=== PATIENT | female | born 2000 | race African-American/Black ===

== ENCOUNTER 2020-06-29 01:49 | Inpatient (IN) | payer OTHER ==
[~2020-06-29] VITALS: Ht 152.4 cm; Wt 55.7 kg
[2020-06-29] VITALS (8 sets, daily range): BP systolic 143–194; BP diastolic 60–120
[2020-06-29 02:55] LABS: ABSOLUTE NEUTROPHILS 1.9 thou/uL (1.4-8.2); EOSINOPHILS 1.4 % (0.0-3.0); HEMATOCRIT 32.9 % (37.0-47.0); HEMOGLOBIN 10.7 gm/dL (12.0-15.0); LYMPHOCYTES 40.9 % (24.0-44.0); MCH 29.2 pg (26.0-34.0); MCHC 32.5 g/dL (28.0-37.0); MCV 89.7 fL (80.0-100.0); MONOCYTES 7.4 % (1.0-8.0); PLATELET COUNT 422 thou/uL (150-400); POLYS 49.3 % (36.0-66.0); RBC 3.67 mil/uL (4.20-5.00); RDW 19.1 % (10.5-14.5)
[2020-06-29 03:00] LABS: CALCIUM 8.2 mg/dL (8.5-10.1); POTASSIUM 3.8 mmol/L (3.5-5.1)
[2020-06-29 03:10] LABS: ALBUMIN 3.1 g/dL (3.4-5.0); TOTAL BILIRUBIN 0.3 mg/dL (0.2-1.0); TOTAL PROTEIN 6.5 g/dL (6.4-8.2)
[2020-06-29] MEDS ORDERED: NORVASC 2.5 MG2.5 M1 PO (03:12)
[2020-06-29] MEDS ORDERED: CARVEDILOL12.5 MG PO (03:13)
[2020-06-29 03:14] LABS: TROPONIN-I 0.63 ng/mL (<0.06)
--- NOTE | 2020-06-29 04:10 | NUR ---
ATTEMPTED TO CALL REPORT TO MARGARETTE ON CCU, REPORTS SHE IS IN ICU TO GRAB SUPPLIES AND WILL CALL BACK
--- NOTE | 2020-06-29 06:09 | NUR ---
ADMITTED FROM ER UNDER 'S CARE. VSS. NO S/S ACUTE DISTRESS NOTED OR REPORTED AT THIS TIME. C/O HEART BURN. CALLED BED SPRING MAKER AND GAVE AM PEPCID EARLY. NO S/S ACUTE DISTRESS NOTED OR REPORTED AT THIS TIME. WILL CONT TO MONITOR FOR ANY CHANGES IN CONDITION.
--- NOTE | 2020-06-29 09:07 | EKG ---
[facility] [place] [address] ELECTROCARDIOGRAM REPORT Name: VALENTINA SHEFFIELD Room #: 209-P ADM IN M.R.#: [id number] Admission: 06/29/20 Attend Phys: Igor Galvez MD Discharge: Date of : 99 Report #: [id number] THIS REPORT FOR: cc: FAM - Family physician unknown FAM - Family physician unknown Jeremias Calvert MD [facility] ~ THIS REPORT FOR: //name// [facility] ED Test Date: 2020-06-29 Test Time: 02:01:37 Pat Name: VALENTINA SHEFFIELD Department: Room: 209 Gender: F Fire Alarm Installer: STOLED : 2000 Requested By: Lynsey Holder Order Number: [id number] MD: Jeremias Calvert Measurements Intervals [place] Rate: 79 P: 47 [place]: 164 QRS: 48 QRSD: 93 T: 151 QT: 412 QTc: 473 Interpretive Statements Sinus rhythm Probable left atrial enlargement Non specific ST-T changes No previous ECG available for comparison Electronically Signed On 06-29-2020 9:07:07 SUPERVISOR PAINT by Jeremias Calvert [email or web address] <ELECTRONICALLY SIGNED> By: Jeremias Calvert MD, FACC 06/29/20906 0 0 Jeremias Calvert MD, [facility] /EPI
--- NOTE | 2020-06-30 04:22 | NUR ---
PT AMBULATING TO BATHROOM INDEPENDENTLY AND IS TOLERATING WELL. DENIES PAIN. PERITONEAL DIALYSIS. RESTING COMFORTABLY. NO NEEDS VOICED. CALL LIGHT WITHIN REACH. FREQUENT OBSERVATION.
[2020-06-30 04:47] VITALS: BP 135/81
--- NOTE | 2020-06-30 09:10 | 2DMMODE ---
[facility] [place] [address] 2 D/M-MODE ECHOCARDIOGRAM Name: VALENTINA SHEFFIELD Room #: 209-P ADM IN M.R.#: [id number] Admission: 06/29/20 Attend Phys: Jeanine Mueller MD Discharge: Date of : 99 Report #: [id number] THIS REPORT FOR: cc: FAM - Family physician unknown FAM - Family physician unknown Jeremias Calvert MD [facility] ~ APPROVED REPORT Study performed: 06/30/2020 08:01:10 EXAM: Comprehensive 2D, Doppler, and color-flow Echocardiogram Patient Location: Bedside Room #: 209 Status: routine BSA: 1.54 HR: 96 bpm BP: 135/81 mmHg Rhythm: NSR Other Information Study Quality: Good Indications Chest pain, abnormal troponin. Hx: HTN, ESRD. 2D Dimensions RVDd: 39.62 mm IVSd: 13.97 (7-11mm) LVOT Diam: 20.44 (18-24mm) LVDd: 42.47 mm PWd: 14.89 (7-11mm) Ascending Ao: 25.87 (22-36mm) LVDs: 28.56 (25-40mm) Aortic Root: 26.91 mm Volumes Left Atrial Volume (Systole) Single Plane 4CH: 59.77 mL Single Plane 2CH: 60.91 mL LA ESV Index: 40.00 mL/m2 Aortic Valve AoV Peak Juan Pablo.: 1.58 m/s AO Peak Gr.: 9.93 mmHg LVOT Max P.78 mmHg LVOT Max V: 1.20 m/s RAMAN Vmax: 2.50 cm2 [facility] [address] [address] 2 D/M-MODE ECHOCARDIOGRAM Name: VALENTINA SHEFFIELD Room #: 209-P [facility]#: [id number] Admission: 06/29/20 Attend Phys: Jeanine Mueller, Discharge: Date of : 99 Report #: [id number] Mitral Valve E/A Ratio: 1.4 MV Decel. Time: 105.82 ms MV E Max Juan Pablo.: 1.11 m/s MV A Juan Pablo.: 0.78 m/s MV PHT: 30.69 ms IVRT: 86.51 ms Pulmonary Valve PV Peak Juan Pablo.: 1.06 m/s PV Peak Gr.: 4.47 mmHg Pulmonary Vein P Vein S: 0.53 m/s P Vein A: 0.36 m/s P Vein D: 0.41 m/s P Vein A Dur.: 121.1 msec P Vein S/D Ratio: 1.29 Tricuspid Valve TR Peak Juan Pablo.: 2.17 m/s RAP Estimate: 5.00 mmHg TR Peak Gr.: 18.82 mmHg PA Pressure: 24.00 mmHg Left Ventricle The left ventricle is normal size. Moderate concentric left ventricular hypertrophy. The left ventricular systolic function is normal. LVEF is 55%. The left ventricular diastolic function is normal. Right Ventricle The right ventricle is normal size. The right ventricular systolic function is normal. Atria Left atrium is mildly dilated. The right atrium size is normal. Aortic Valve The aortic valve is normal in structure. No aortic regurgitation is present. There is no aortic valvular stenosis. Mitral Valve The mitral valve is normal in structure. Trace mitral regurgitation. No evidence of mitral valve stenosis. Tricuspid Valve The tricuspid valve is normal in structure. Trace to mild tricuspid [facility] [address] [place] [address] 2 D/M-MODE ECHOCARDIOGRAM Name: VALENTINA SHEFFIELD Room #: 209-P [facility] IN .R.#: [id number] Admission: 06/29/20 Attend Phys: Jeanine Mueller, Discharge: Date of : 99 Report #: [id number] regurgitation. Estimated PAP 25mmHg. Pulmonic Valve The pulmonary valve is normal in structure. Mild pulmonic regurgitation. Great Vessels The aortic root is normal in size. The ascending aorta is normal in size. IVC is normal in size and collapses >50% with inspiration. Pericardium Small circumferential pericardial effusion. <Conclusion> Normal left ventricle size Moderate concentric hypertrophy Normal systolic function ejection fraction of 55%, negative for segmental wall motion abnormality Normal right ventricle size and function Mild left atrial enlargement Trace of tricuspid valve insufficiency with a PA pressure systolic estimated 25 mmHg Small pericardial effusion, no tamponade physiology. <ELECTRONICALLY SIGNED> By: Jeremias Calvert MD, FACC 06/30/20909 9 9 Jeremias Calvert MD, FACC /INF
[2020-06-30 09:16] LABS: HEMATOCRIT 30.8 % (37.0-47.0); MCH 29.1 pg (26.0-34.0); MCHC 32.4 g/dL (28.0-37.0); MCV 89.9 fL (80.0-100.0); RBC 3.42 mil/uL (4.20-5.00); RDW 19.7 % (10.5-14.5); WBC 5.1 thou/uL (4.0-11.0)
[2020-06-30 09:34] LABS: CALCIUM 8.4 mg/dL (8.5-10.1); POTASSIUM 4.1 mmol/L (3.5-5.1)
[2020-06-30 09:43] LABS: TROPONIN-I 0.41 ng/mL (<0.06)
[2020-06-30 12:00] VITALS: BP 109/87
[2020-06-30] MEDS ORDERED: PROTONIX40 M4 PO (16:08)
[2020-06-30] MEDS ORDERED: ZOFRAN 4 MG ORAL4 MG PO (16:08)
[2020-06-30 16:35] VITALS: BP 109/87
--- NOTE | 2020-06-30 16:58 | NUR ---
DISCHARGE INSTRUCTIONS REVIEWED WITH PT. ALL QUESTIONS ANSWERED. PIV AND TELE DC'D. RX, INSTRUCTIONS AND BELONGINGS SENT WITH PT.
== END 2020-06-30 16:58 | disposition home or self-care (01) | DRG 280 ==
LOC: ER 01:49 → 2N 04:04 → EROBS 04:04 → 2N 05:32
PROVIDERS: Nurse Practitioner Family; Student in an Organized Health Care Education/Training Program; ADMIT Internal Medicine; ATTEND Internal Medicine
PROC: 3E1M39Z Irrigation of Peritoneal Cavity using Dialysate, Percutaneous Approach (ICD-10-PCS; principal; 2020-06-29)
PROC: 3E1M39Z Irrigation of Peritoneal Cavity using Dialysate, Percutaneous Approach (ICD-10-PCS; 2020-06-30)
DX: I16.1 Hypertensive emergency (principal); I21.A1 Myocardial infarction type 2; N18.6 End stage renal disease; I12.0 Hypertensive chronic kidney disease with stage 5 chronic kidney disease or end stage renal disease; D64.9 Anemia, unspecified; Z79.899 Other long term (current) drug therapy; Z88.8 Allergy status to other drugs, medicaments and biological substances; Z99.2 Dependence on renal dialysis
CPT/HCPCS: 10081; 33000

== ENCOUNTER 2020-07-22 06:41 | Inpatient (IN) | payer OTHER ==
[2020-07-22] VITALS (57 sets, daily range): BP systolic 115–205; BP diastolic 86–135
[~2020-07-22] VITALS: Ht 177.8 cm; Wt 46.7 kg
--- NOTE | ~2020-07-22 | HC ---
[facility] [place] [address] CONSULTATION Name: VALENTINA SHEFFIELD Room #: [facility] IN M.R.#: [id number] Admission: 07/22/20 Attend Phys: Kevin Lam MD Discharge: 07/29/20 Date of : 99 Report #: [id number] THIS REPORT FOR: cc: FAM - Family physician unknown FAM - Family physician unknown Charanjit Rodrigues MD ~ DATE OF SERVICE: 07/22/2020 HISTORY OF PRESENT ILLNESS: This is a 20-year-old female patient who is unable to provide any history. No family member is here. I talked to Dr. Singh from Emergency Room before and after seeing the patient. As I understand, the patient was found unresponsive with a snoring respiration at home. She was brought in and had seizure on her way to the hospital. She was hypertensive and that is being treated. She is a dialysis patient. Her creatinine in the Emergency Room is 26.9 and GFR is only 2. No other history is available from the patient. REVIEW OF SYSTEMS: Attempted, but there is nothing in the patient's records. It is not known how long this patient has been out and she is a dialysis patient. I will try to make an effort to contact somebody if we can. PAST MEDICAL HISTORY: Positive for being on dialysis. She is hypertensive. It is not clear how much compliant is she with the medication. She is on the peritoneal dialysis. We will continue to reach the family because diffusion weighted images are not very impressive and changes are pretty minimal and I talked to the radiologist. By: [id number] Charanjit Rodrigues MD /nt
--- NOTE | ~2020-07-22 | EEG ---
[facility] [place] [address] ELECTROENCEPHALOGRAM Name: VALENTINA SHEFFIELD Room #: 213-P [facility] IN M.R.#: [id number] Admission: 07/22/20 Attend Phys: Kevin Lam MD Discharge: 07/29/20 Date of : 99 Report #: [id number] THIS REPORT FOR: //name// DATE OF SERVICE: 07/22/2020 This patient is being evaluated for seizure. EEG was done by placing the electrode by 10-20 system of electrode placement. Both referential and sequential montages were used for recording. Background activity is very difficult to determine because the background activity is intermixed with a lot of artifact. Background activity does appear to be going up to about 8 Hz and 15 microvolts, but it is intermixed with a lot of theta range slowing on both sides. The patient was noncooperative throughout the record. No active epileptiform activity was noticed. IMPRESSION: This patient's EEG is intermixed with theta range slowing on both sides. That is a nonspecific abnormality, which can occur with encephalopathy, effect of psychotropic medication, dementia, etc. Clinical correlation is recommended. By: [id number] Charanjit Rodrigues MD /nt
[~2020-07-22 06:41] MED LIST: CARVEDILOL12.5 MG PO; NORVASC 2.5 MG2.5 M1 PO; PROTONIX40 M4 PO; ZOFRAN 4 MG ORAL4 MG PO
[2020-07-22] MEDS ORDERED: ZOFRAN4 MG PO (06:51)
[2020-07-22] MEDS ORDERED: COZAAR 50 MG TA50 M1 PO (06:52)
[2020-07-22] MEDS ORDERED: RENA-VITE PO (06:53)
[2020-07-22] MEDS ORDERED: SENSIPAR60 MG PO (06:54)
[2020-07-22] MEDS ORDERED: HYDRALAZINE 5050 MG PO (06:55)
[2020-07-22] MEDS ORDERED: SENSIPAR90 MG PO (06:55)
[2020-07-22 07:14] LABS: ABSOLUTE NEUTROPHILS 7.8 thou/uL (1.4-8.2); BASOPHILS 0.4 % (0.0-2.0); EOSINOPHILS 0.2 % (0.0-3.0); HEMATOCRIT 40.8 % (37.0-47.0); HEMOGLOBIN 12.8 gm/dL (12.0-15.0); LYMPHOCYTES 22.7 % (24.0-44.0); MCH 28.6 pg (26.0-34.0); MCHC 31.2 g/dL (28.0-37.0); MCV 91.5 fL (80.0-100.0); PLATELET COUNT 467 thou/uL (150-400); POLYS 73.7 % (36.0-66.0); RBC 4.47 mil/uL (4.20-5.00); RDW 15.4 % (10.5-14.5); WBC 10.6 thou/uL (4.0-11.0)
[2020-07-22 07:24] LABS: CALCIUM 9.2 mg/dL (8.5-10.1); CREATININE 26.9 mg/dL (0.6-1.0); POTASSIUM 3.8 mmol/L (3.5-5.1)
[2020-07-22 07:29] LABS: ALBUMIN 3.7 g/dL (3.4-5.0); DIRECT BILIRUBIN 0.1 mg/dL (<0.1-0.2); TOTAL BILIRUBIN 0.4 mg/dL (0.2-1.0); TOTAL PROTEIN 7.4 g/dL (6.4-8.2)
--- NOTE | 2020-07-22 11:48 | NUR ---
ATTEMPTED TO CALL REPORT - ICU NO LONGER ANSWERING THE PHONE
--- NOTE | 2020-07-22 12:42 | EKG ---
[facility] [place] [address] ELECTROCARDIOGRAM REPORT Name: VALENTINA SHEFFIELD Room #: 213-[facility] IN M.R.#: [id number] Admission: 07/22/20 Attend Phys: Kevin Lam MD Discharge: 07/29/20 Date of : 99 Report #: [id number] THIS REPORT FOR: cc: FAM - Family physician unknown FAM - Family physician unknown Jeremias Calvert MD [facility] ~ THIS REPORT FOR: //name// [facility] ED Test Date: 2020-07-22 Test Time: 10:24:22 Pat Name: MARIAMA SHEFFIELD Department: Room: [facility] Gender: F Telegraph Service Rater: esheets : 2000 Requested By: Carley Singh Order Number: [id number] MD: Jeremias Calvert Measurements Intervals [place] Rate: 136 P: 83 ME: 193 QRS: 61 QRSD: 85 T: -51 QT: 335 QTc: 504 Interpretive Statements Sinus tachycardia Prolonged QT interval Baseline wander in lead(s) V1 No previous ECG available for comparison Electronically Signed On 07-22-2020 12:42:26 SECURITY COMPLIANCE ENGINEER by Jeremias Calvert [email or web address] <ELECTRONICALLY SIGNED> By: Jeremias Calvert MD, FACC 07/22/20 [phone] 1024 Jeremias Calvert MD, [facility] /EPI
--- NOTE | 2020-07-22 17:37 | NUR ---
PT ADMITTED TO ICU TODAY FOR NEW ONSET SEIZURE ACTIVITY. PT AWAKENS TO VOICE OR NOXIOUS STIMULI AND YELLS OUT COHERENTLY BUT CONFUSED. YUSUF AND IS COMBATIVE AT TIMES. PT IS GENERALLY UNCOOPERATIVE AND IMPULSIVE, ATTEMPTING TO EXIT THE BED. ATIVAN GIVEN WITH MINIMAL EFFECT. GEODON GIVEN WITH GOOD RESULTS. PT RESTING QUIETLY AFTER DOSE. CARDENE TITRATED TO MAINTAIN SBP AROUND [address] ROOT. MS. SHEFFIELD IS A PERITONEAL DIALYSIS PT. GOAL FOR MS. SHEFFIELD IS TO RETURN TO BASELINE NEURO STATUS, RETURN TO BASELINE RENAL STATUS AND BE SEIZURE FREE. PT IS A CANDIDATE FOR EDUCATION REGARDING TREATMENT AND MEDICATION COMPLIANCE. PT IS RESTRAINED TO PROTECT LINES AND TUBES. PT PROGRESSING TOWARD GOALS.
--- NOTE | 2020-07-22 18:00 | NUR ---
AT AROUND 1330, DR. ROOT CONTACTED TO DISCUSS PT'S CONFUSION, COMBATIVENESS, UNCOOPERATIVENESS AND THE ABILITY TO PERFORM AN MRA. DR. ROOT REQUESTED TO CONTACT THE HOSPITALIST FOR THIS. ALSO REVIEWED WAS THE CARDENE WITH DESIRED B/P PARAMETER. DR. ROOT STATED THAT IF THE PT WAS UNABLE TO UNDERGO THE MRA TODAY, SHE WOULD NEED A CTA OR PERFORM THE MRA TOMORROW.
[2020-07-23] VITALS (79 sets, daily range): BP systolic 121–210; BP diastolic 47–151
--- NOTE | 2020-07-23 03:42 | NUR ---
ASSUMED CARE OF PATIENT AT 1900. LETHARGIC, DROWSY, DIFFICULT TO AROUSE. BECAME INCREASINGLY AGITATED BETWEEN [phone]. TACHYCARDIC, BP INCREASINGLY ELEVATED DESPITE CARDENE GTT, FIGHTING AGAINST RESTRAINTS, UNABLE TO FOLLOW COMMANDS. ORDER FOR PRECEDEX OBTAINED, TITRATED TO KEEP PATIENT CALM, STILL SOMEWHAT AROUSABLE. STATED SHE WAS COLD, BUT REFUSED/UNABLE TO FOLLOW OTHER COMMANDS. MONITORING VERY CLOSELY. NOT PROGRESSING TOWARDS POC GOALS.
[2020-07-23 09:30] LABS: ALBUMIN 3.1 g/dL (3.4-5.0); CALCIUM 8.1 mg/dL (8.5-10.1); CREATININE 27.7 mg/dL (0.6-1.0); PHOSPHORUS 11.1 mg/dL (2.5-4.9); POTASSIUM 5.7 mmol/L (3.5-5.1)
--- NOTE | 2020-07-23 09:51 | NUR ---
ASSUMED CARE AT 0700. PATIENT'S MOTHER CALLED AROUND 0915 AND WAS SPOKEN TO FOR APPROXIMATELY 5 MINUTES. SHE WAS UPDATED AND EDUCATED ON THE PATIENT'S CONDITION AND PLAN OF CARE.
--- NOTE | 2020-07-23 10:56 | NUR ---
chart review. unable to visit with missael. chichi spoke with her mom teetee hollingsworth [phone]. education on dcp, transition of care ie home health, outpt appointments. having pcp. " she was going to see at for pcp but she was in hospital so much lately she missed the appointment. live in apartment with her mom, 9 steps with hand rails down to get out of apartment. she independent when she is feeling ok. had to with drawl from online college course rt her in out hospital recently and no feeling well. she was mange her own medication but i will have to start doing it to make sure she is taking her medication. she independent when feeling ok. has peritoneal dialysis through [facility]. Dr Lester for dialysis. she does drive vehicle. works at [email or web address] on weekend. mom cooks.
--- NOTE | 2020-07-23 22:46 | NUR ---
ASSUMED CARE OF PATIENT AT 1900. ANSWERING SOME QUESTIONS BUT IS RESTLESS, ANXIOUS, REMVING BP CUFF, O2 SENSOR. PRN ATIVAN GIVEN. ICT MANAGERS IN TO SET UP PERITONEAL DIALYSIS, TOLERATING WELL OVER NIGHT. REFUSING MOST CARES. NOT PROGRESSING TOWARDS POC GOALS.
[2020-07-24] VITALS (55 sets, daily range): BP systolic 118–211; BP diastolic 80–131
--- NOTE | 2020-07-24 18:33 | NUR ---
SPOKE TO MOTHER AND SISTER ON PHONE TODAY AND UPDATED THEM ON PT CONDITION AND PLAN OF CARE. PATIENT MORE AWAKE AND COHERENT THIS EVENING. COOPERATIENT AND TAKING PO MEDS. CARDENE HAS BEEN OFF ALL SHIFT AND PRECEDEX TITRATED DOWN TO 0.6 MCG/KG/HR. INTRAPERITONEAL DIALYSIS STARTED AT 1800.
[2020-07-25] VITALS (61 sets, daily range): BP systolic 140–204; BP diastolic 80–128
--- NOTE | 2020-07-25 18:28 | NUR ---
PATIENT PROGRESSING TOWARDS PLAN OF CARE. NO SIGNS OR SYMPTOMS OF SEIZURES. PATIENT WEANED OFF PRECEDEX AT 1430. CARDENE GTT HAS BEEN OFF SINCE 07/24. PATIENT FORGETFUL THROUGHOUT THE DAY. DROWSY AT TIMES. AROUSES EASILY. PATIENT SPOKE WITH MOTHER ON THE PHONE THREE TIMES TODAY. NURSE SPOKE WITH MOTHER TWICE. PATIENT HAD 400CC EMESIS. PATIENT GIVEN MEDICATION FOR NAUSEA. PATIENT REFUSED MEALS.
[2020-07-26] VITALS (43 sets, daily range): BP systolic 131–186; BP diastolic 68–131
[2020-07-26 03:24] LABS: ALBUMIN 3.2 g/dL (3.4-5.0); CALCIUM 9.9 mg/dL (8.5-10.1); POTASSIUM 3.9 mmol/L (3.5-5.1)
[2020-07-26 03:25] LABS: CREATININE 21.9 mg/dL (0.6-1.0)
--- NOTE | 2020-07-26 17:56 | NUR ---
RECEIVED PT'S CARE AROUND 0720; PT. ON BED; RESTING WITH EYES CLOSED; ST ON THE MONITOR; SBP ON THE 160s; EQUAL CHEST RISING; 02 SAT ABOVE 95%; DURING SHIFT CHANGED DR. SHELDON ROUNDING; UPATED ABOUT PT'S STATUS; NOTIFIED ABOUT NAUSEA AND VOMITING; STAvery UNDERSTANDING; ORDERS ON PLACED; DURING AM ASSESSMENT SLEEP INTERRUPTED; AOX4; NO C/O PAIN; AM MEDICATIONS GIVEN; EDUCATED ABOUT IT; ST. "WOW THERE ARE ALOT PILLS"; EDUCATED ABOUT IT; POOR APPETITE THROUGH THE DAY; EDUCATED ABOUT THE IMPORTANCE OF EATING AND CALORIE INTAKE; ST. "I AM NOT HUNGRY"; ATE SOME PEACHES DURING AM; NO C/O NAUSEA OR VOMITING; DR. DUCKWORTH NOTIFIED DURING ROUNDING; ORDERS RECEIVED; PT. UP TO CHAIR DURING LUNCH AND DINNER; EDUCATED ABOUT THE IMPORTANCE INCREASE ACTIVITY; C/O WEAKNESS WHEN STANDING UP FROM BED TO CHAIR; PT'S MOTHER UPDATED ABOUT PT'S HEALTH AND POC; EDUCATED ABOUT VISITOR POLICIES; ST. "JUST ONE VISITOR YOU KNOW SHE HAS SEVERAL PARENTS"; EDUCATED ABOUT DUE TO COVID PTS ARE ALLOW ONE VISITOR PER STAY; REQUESTED TO BE NOTIFIED IF PT. TRANSFER TO DIFFERENT UNIT; VENDING SUPERVISOR UNDERSTANDING; DAUGHTER CALLED MOTHER DURING THE AFTERNOON; SBP BELOW 160 DURING THE AFTERNOON; SR ON THE MONITOR; MONITORING; ASSESSMENT CHARGED; FOLLOWING POC; WILL PASS ON REPORT;
[2020-07-27] VITALS (17 sets, daily range): BP systolic 117–158; BP diastolic 64–102
--- NOTE | 2020-07-27 18:50 | NUR ---
PT PROGRESSING IN PLAN OF CARE. PT COMPLAININ OF NAUSEAS 0730 PRN GIVEN ABLE TO TOLERATE PO MEDICATIONS THIS AM. 1400 UPDATED PT ANTHONY ON CURRENT STATUS. SHE WAS PLEASED WITH THE PROGRESS. PERITONEAL DIALYSIS STARTED THIS EVENING PER LOLLYPOP MACHINE OPERATOR. 1715 PT UP C/O NAUSEA AGAIN. CLEAR EMESIS X1 50CC. PRN'S GIVEN AND ABLE TOLEERATE PO MEDS 30 MINS FOLLOWING. AFEBRILE. NO BM. HAS TX ORDERES AWAITING CCU BED.
[2020-07-28] VITALS (18 sets, daily range): BP systolic 114–153; BP diastolic 71–98
--- NOTE | 2020-07-28 06:00 | NUR ---
PT RESTING QUIETLY. PERITONEAL DIAYSIS FINISHED EARLIER. 1100 CC OFF PT GOT UP TO CHAIR HERSELF. DIALYSIS CATH INTACT. REMAINS ANURIC. DENIESS PAIN. ONLY REQUEST IS A WARM BLANKET, REMAINS IN SINUS TACH PROGRESSING TOWARD GOALS. REMAINS A CCU OVERFLOW
--- NOTE | 2020-07-28 08:29 | NUR ---
Assumed care at 0700 from the night nurse, Ana Maria. Patient is alert and orientated. Pleasant and conversing with staff. No seizure activity, states that she has a poor memory of this month. Will continue to monitor.
--- NOTE | 2020-07-28 11:54 | NUR ---
chart review. noted no driving in md notes. possible move out of icu to ccu. cm visited with her mom sim hollingsworth. " thank you for calling. just would like to know when moves out of icu, i have not seen her in week. also would like to talk with about what caused her seizure and if she going to go to [facility] for dialysis and not do home dialysis anymore. think she would be more compliant, think she was falling asleep before starting her pd and then that's like missing a tx and she did not understand that."/teetee hollingsworth.
--- NOTE | 2020-07-28 18:26 | NUR ---
PATIENT PROGRESSING TOWARDS OUTCOME GOALS EVIDENCED BY, NO SEIZURE ACTIVITY NOTED, UP TO CHAIR AND BACK TO BED. BP 120'S / 70'S. DENIES HEADACHE. POOR APPITITE. DIET ENCOURAGED. PERTIONEAL DIALYSIS STARTED BY THE DIALYSIS NURSE FOR OVER NIGHT. WILL CONTINUE TO MONITOR.
--- NOTE | 2020-07-29 | NUR ---
PT BATHED. STATES TO FEEL SO MUCH BETTER. PROGRESSING TOWARD GOALS
[2020-07-29 00:02] VITALS: BP 129/77
[2020-07-29 03:47] VITALS: BP 127/75
--- NOTE | 2020-07-29 05:00 | NUR ---
PT RESTED QUIETLY TONIGHT. PERITONEAL DIALYSIS FINISHED At 0500 AWAKE AND ALERT. NEURO INTACT VSS REMAINS IN SINUS TACH. WILL CONT TO MONITOR.
[2020-07-29 05:22] VITALS: BP 144/89
[2020-07-29 06:22] VITALS: BP 129/77
--- NOTE | 2020-07-29 07:45 | NUR ---
PT TX VIA W/C TO CCU ROOM 213 WITH RN
[2020-07-29 09:00] VITALS: BP 130/68
[2020-07-29] MEDS ORDERED: AMLODIPINE BESY10 MG PO (09:58)
[2020-07-29] MEDS ORDERED: CARVEDILOL25 MG PO (09:58)
[2020-07-29] MEDS ORDERED: KEPPRA 500 MG500 M1 PO (09:58)
[2020-07-29 11:05] VITALS: BP 130/68
--- NOTE | 2020-07-29 11:36 | NUR ---
PT DC HOME AT 1130. MOTHER AT BEDSIDE, EDUCATION WAS GIVEN ABOUT MEDICATION, LIFESYTLE, AND ALL OTHER DISCHARGE INTERVENTIONS. PT TAKEN BY WHEELCHAIR TO ED ENTRANCE, PICKED UP BY MOTHER. PT PROGRESSING TOWARDS POC.
--- NOTE | 2020-07-31 11:22 | EKG ---
[facility] [place] [address] ELECTROCARDIOGRAM REPORT Name: VALENTINA SHEFFIELD Room #: 213-P [facility] IN M.R.#: [id number] Admission: 07/22/20 Attend Phys: Kevin Lam MD Discharge: 07/29/20 Date of : 99 Report #: [id number] THIS REPORT FOR: cc: FAM - Family physician unknown FAM - Family physician unknown Jeremias Calvert MD [facility] ~ THIS REPORT FOR: //name// [facility] Test Date: 2020-07-23 Test Time: 17:58:47 Pat Name: VALENTINA SHEFFIELD Department: Room: 240 P Gender: F Vice President Marketing & Development: Montse VASQUEZ : 2000 Requested By: Kevin Lam Order Number: [id number] MD: Jeremias Calvert Measurements Intervals [place] Rate: 154 P: 100 [place]: 111 QRS: 110 QRSD: 77 T: -42 QT: 277 QTc: 444 Interpretive Statements Right and left arm electrode reversal, interpretation assumes no reversal ECTOPIC ATRIAL TACHYCARDIA Abnormal T, consider ischemia, inferior leads Compared to ECG 07/22/2020 10:24:22 Left posterior fascicular block now present T-wave abnormality now present Prolonged QT interval no longer present Electronically Signed On 07-24-2020 7:26:32 COMBINATION BUILDING INSPECTOR by Jeremias Calvert [email or web address] <ELECTRONICALLY SIGNED> By: Jeremias Calvert MD, [facility] 07/24/20 0726 57 175 Jeremias Calvert MD, [facility] /EPI
== END 2020-07-29 11:28 | disposition home or self-care (01) | DRG 64 ==
LOC: ER 06:41 → 2N 10:30 → ICU 10:30 → EROBS 10:30 → ICU 13:02 → 2N 07-29 09:00
PROVIDERS: Emergency Medicine; Internal Medicine Nephrology; ADMIT Hospitalist; ATTEND Hospitalist
PROC: 3E1M39Z Irrigation of Peritoneal Cavity using Dialysate, Percutaneous Approach (ICD-10-PCS; principal; 2020-07-23)
PROC: 3E1M39Z Irrigation of Peritoneal Cavity using Dialysate, Percutaneous Approach (ICD-10-PCS; 2020-07-24)
PROC: 3E1M39Z Irrigation of Peritoneal Cavity using Dialysate, Percutaneous Approach (ICD-10-PCS; 2020-07-25)
PROC: 3E1M39Z Irrigation of Peritoneal Cavity using Dialysate, Percutaneous Approach (ICD-10-PCS; 2020-07-26)
PROC: 3E1M39Z Irrigation of Peritoneal Cavity using Dialysate, Percutaneous Approach (ICD-10-PCS; 2020-07-27)
PROC: 3E1M39Z Irrigation of Peritoneal Cavity using Dialysate, Percutaneous Approach (ICD-10-PCS; 2020-07-28)
DX: I63.9 Cerebral infarction, unspecified (principal); N18.6 End stage renal disease; I67.83 Posterior reversible encephalopathy syndrome; I16.1 Hypertensive emergency; I12.0 Hypertensive chronic kidney disease with stage 5 chronic kidney disease or end stage renal disease; G40.901 Epilepsy, unspecified, not intractable, with status epilepticus; Z20.828 Contact with and (suspected) exposure to other viral communicable diseases; E11.22 Type 2 diabetes mellitus with diabetic chronic kidney disease; E87.5 Hyperkalemia; R41.0 Disorientation, unspecified; Z91.19 Patient's noncompliance with other medical treatment and regimen; Z88.8 Allergy status to other drugs, medicaments and biological substances; Z91.012 Allergy to eggs; Z79.82 Long term (current) use of aspirin; Z79.899 Other long term (current) drug therapy; Z99.2 Dependence on renal dialysis
CPT/HCPCS: 10078; 10203; 33000

== ENCOUNTER 2020-07-30 02:11 | Emergency (ER) | payer OTHER ==
[~2020-07-30] VITALS: Ht 152.4 cm; Wt 49.9 kg
[2020-07-30 04:54] VITALS: BP 134/92
== END 2020-07-30 04:56 | disposition home or self-care (01) ==
LOC: ER 02:11
DX: R51.9 Headache, unspecified (principal); R11.2 Nausea with vomiting, unspecified; I12.0 Hypertensive chronic kidney disease with stage 5 chronic kidney disease or end stage renal disease; N18.6 End stage renal disease; Z99.2 Dependence on renal dialysis; Z79.899 Other long term (current) drug therapy; Z79.2 Long term (current) use of antibiotics; Z88.8 Allergy status to other drugs, medicaments and biological substances; Z91.012 Allergy to eggs

== ENCOUNTER → 2020-07-30 | Emergency (ER) | payer OTHER ==
[~2020-07-30] VITALS: Ht 154.9 cm; Wt 49.4 kg
[~2020-07-30] MED LIST changes: +AMLODIPINE BESY10 MG PO; +CARVEDILOL25 MG PO; +COZAAR 50 MG TA50 M1 PO; +HYDRALAZINE 5050 MG PO; +KEPPRA 500 MG500 M1 PO; +RENA-VITE PO; +SENSIPAR60 MG PO; +SENSIPAR90 MG PO; +ZOFRAN4 MG PO
[2020-07-30 10:02] VITALS: BP 130/88
--- NOTE | 2020-07-30 15:39 | EKG ---
[address] [place] [address] ELECTROCARDIOGRAM REPORT Name: VALENTINA SHEFFIELD Room #: [facility]..#: [id number] Admission: Attend Phys: Discharge: Date of : 99 Report #: [id number] [facility] ED Test Date: 2020-07-30 Test Time: 10:09:49 Pat Name: VALENTINA SHEFFIELD Department: Room: Gender: Traffic Ii Manager: MEGAN : 2000 Requested By: Sada Tee Order Number: [id number] MD: Jeremias Calvert Measurements Intervals [place] Rate: 115 P: 87 MS: 174 QRS: 42 QRSD: 78 T: -36 QT: 361 QTc: 500 Interpretive Statements Sinus tachycardia Right atrial enlargement Borderline T abnormalities, inferior leads Prolonged QT interval Compared to ECG 07/23/2020 17:58:47 Atrial abnormality now present Prolonged QT interval now present Possible ischemia no longer present T-wave abnormality still present Electronically Signed On 07-30-2020 15:39:07 CHEMISTRY PROFESSOR by Jeremias Calvert [email or web address] <ELECTRONICALLY SIGNED> By: Jeremias Calvert MD, [facility] 07/30/20 1539 1009 08 Jeremias Calvert MD, FACC /EPI
== END ==
LOC: ER 10:00
DX: M54.9 Dorsalgia, unspecified (principal); R11.2 Nausea with vomiting, unspecified; Z53.21 Procedure and treatment not carried out due to patient leaving prior to being seen by health care provider

== ENCOUNTER 2021-03-22 02:08 | Inpatient (IN) | payer OTHER ==
[~2021-03-22] VITALS: Ht 152.4 cm; Wt 47.2 kg
[2021-03-22 02:12] VITALS: BP 190/136
[2021-03-22 03:38] LABS: ABSOLUTE NEUTROPHILS 2.3 thou/uL (1.4-8.2); BASOPHILS 0.8 % (0.0-2.0); HEMATOCRIT 35.7 % (37.0-47.0); HEMOGLOBIN 12.1 gm/dL (12.0-15.0); LYMPHOCYTES 34.7 % (24.0-44.0); MCH 29.1 pg (26.0-34.0); MCHC 33.8 g/dL (28.0-37.0); MCV 86.1 fL (80.0-100.0); MONOCYTES 5.2 % (1.0-8.0); PLATELET COUNT 237 thou/uL (150-400); POLYS 50.3 % (36.0-66.0); RBC 4.15 mil/uL (4.20-5.00); RDW 17.2 % (10.5-14.5); WBC 4.7 thou/uL (4.0-11.0)
[2021-03-22 03:47] LABS: ALBUMIN 3.9 g/dL (3.4-5.0); CALCIUM 8.4 mg/dL (8.5-10.1); CREATININE 13.5 mg/dL (0.6-1.0); TOTAL BILIRUBIN 0.4 mg/dL (0.2-1.0); TOTAL PROTEIN 7.5 g/dL (6.4-8.2)
[2021-03-22 03:50] LABS: POTASSIUM 6.6 mmol/L (3.5-5.1)
[2021-03-22 09:53] LABS: CREATININE 14.4 mg/dL (0.6-1.0)
[2021-03-22 09:56] LABS: POTASSIUM 5.1 mmol/L (3.5-5.1)
--- NOTE | 2021-03-22 10:28 | NUR ---
PT EXPRESSES WISHES TO LEAVE AMA. AWAITING HER MOTHER'S ARRIVAL. STRESSED IMPORTANCE OF STAYING FOR FURTHER MONITORING. PT STATES SHE HAS DIALYSIS IN THE AM AND IS FEELING MUCH BETTER. DR KAREN FELICIANO
--- NOTE | 2021-03-22 12:25 | EKG ---
[address] [place] [address] ELECTROCARDIOGRAM REPORT Name: VALENTINA SHEFFIELD Room #: 170-6 ADM IN M.R.#: [id number] Admission: 03/22/21 Attend Phys: Randall Polanco MD Discharge: Date of : 99 Report #: [id number] [facility] ED Test Date: 2021-03-22 Test Time: 03:55:59 Pat Name: VALENTINA SHEFFIELD Department: Room: 170 Gender: F Electronic Resources Librarian: : 2000 Requested By: Alec Harris Order Number: [id number] MD: Roney Carmichael Measurements Intervals [place] Rate: 78 P: 47 [place]: 190 QRS: 54 QRSD: 90 T: 54 QT: 408 QTc: 465 Interpretive Statements Sinus rhythm Multiform ventricular premature complexes Baseline wander in lead(s) V2 Compared to ECG 07/30/2020 10:09:49 Electronically Signed On 03-22-2021 12:25:30 CDT by Roney Carmichael [email or web address] <ELECTRONICALLY SIGNED> By: Roney Carmichael MD 03/22/21 [id number] Roney Carmichael MD /KORY
--- NOTE | 2021-03-22 14:33 | NUR ---
PT AWAKE AND ALERT. EXPRESSES WISHES TO LEAVE AMA AT THIS TIME. PT STATES SHE CONTINUES TO FEEL BETTER AND HAS DIALYSIS TOMORROW. SIGN AMA FORM. DR JONES NOTIFIFED
[2021-03-22 14:34] VITALS: BP 167/114
== END 2021-03-22 14:35 | disposition left against medical advice (07) | DRG 304 ==
LOC: ER 02:08 → EROBS 09:25
PROVIDERS: Emergency Medicine; ADMIT Hospitalist; ATTEND Hospitalist
DX: I16.1 Hypertensive emergency (principal); N18.6 End stage renal disease; N17.9 Acute kidney failure, unspecified; E87.5 Hyperkalemia; I12.0 Hypertensive chronic kidney disease with stage 5 chronic kidney disease or end stage renal disease; N83.201 Unspecified ovarian cyst, right side; Z53.21 Procedure and treatment not carried out due to patient leaving prior to being seen by health care provider; Z20.822 Contact with and (suspected) exposure to COVID-19; Z99.2 Dependence on renal dialysis; Z91.15 Patient's noncompliance with renal dialysis; Z88.8 Allergy status to other drugs, medicaments and biological substances; Z91.012 Allergy to eggs; Z79.899 Other long term (current) drug therapy